=== PATIENT | female | born 1965 | race Caucasian/White ===

== ENCOUNTER 2024-10-12 13:49 | Emergency (ER) | payer BC ==
[~2024-10-12] VITALS: Ht 167.6 cm; Wt 114.2 kg
[2024-10-12] MEDS ORDERED: WELLTAB40 PO (13:57)
[2024-10-12] MEDS ORDERED: IBUP-1022 PO (13:57)
[2024-10-12] MEDS ORDERED: ACET-1593 PO (13:57)
[2024-10-12 15:16] VITALS: BP 131/77; TEMP 97.2; O2SAT 98
== END 2024-10-12 15:18 | disposition home or self-care (01) ==
LOC: M ED 13:49
DX: M79.604 Pain in right leg (principal); F41.9 Anxiety disorder, unspecified; F32.A Depression, unspecified; Z88.1 Allergy status to other antibiotic agents; Z79.1 Long term (current) use of non-steroidal anti-inflammatories (NSAID); Z79.899 Other long term (current) drug therapy